=== PATIENT | male | born 1995 | race Caucasian/White ===

== ENCOUNTER 2023-07-26 15:13 | Outpatient (OUT) | payer OTHER, SELFPAY ==
--- NOTE | 2023-07-26 15:37 | XR_ITS ---
The [address] [address] Patient Name: KAREN CLEVELAND MRN: [id number] date: 1995 Sex: M Assigned Patient Location: RAD Current Patient Location: [facility] Accession/Order Number: [id number] Exam Date: 07/26/2023 15:30 Report Date: 07/26/2023 15:48 At the request of: MAGUE GRAHAM Procedure: XR finger RT min 2V EXAM: XR finger RT min 2V HISTORY: Crush injury COMPARISON: None. TECHNIQUE: 3 view study FINDINGS: Overall bony architecture is normal. Articulations are intact. Distal soft tissue swelling of the fourth digit is noted. XR/XR finger RT min 2V IMPRESSION: No evidence for acute fracture or dislocation. Electronically authenticated by: Maral ASHER Date: 07/26/2023 15:48
== END 2023-07-26 15:14 | disposition home or self-care (01) ==
LOC: RAD 15:17
PROVIDERS: Visit Provider Nurse Practitioner Family
DX: S67.194A Crushing injury of right ring finger, initial encounter (principal)
CPT/HCPCS: 73140